=== PATIENT | female | born 1995 | race Caucasian/White ===

== ENCOUNTER 2017-01-14 19:10 | Emergency (ER) | payer OTHER ==
[2017-01-14 19:23] VITALS: BP 127/98; PULSE 122; TEMP 99.8; BMI 26.8
[2017-01-14] MEDS ORDERED: OXYCODONE/APAP 5/325MG COMBO TABLET PO ONE ×2 (20:24→21:50)
[2017-01-14] MEDS ORDERED: OXYCODONE/APAP 5/325MG COMBO TABLET ONE ×2 (20:25→21:17)
--- NOTE | 2017-01-14 20:35 | PDOC ---
[id number] INJURY Time Seen by Provider: 01/14/17 19:58 - History of Present Illness Initial Comments: 01/14/17 20:28 CHIEF COMPLAINT: leg pain HISTORY OF PRESENT ILLNESS: 21 yo F with no PMH presents to fast track with severe pain to left leg s/p fall. Patient states she was walking into the house carrying some groceries when she tripped and fell down and "felt my leg break." She states she felt a snap when she fell. She denies any loss of sensation to her feet or legs. No recent travel or sick contacts. PAST MEDICAL HISTORY: Denies past medical history FAMILY HISTORY: Denies SURGICAL HISTORY: Denies ALLERGIES: No known drug allergies REVIEW OF SYSTEMS General/Constitutional: Denies fever or chills. Denies weakness, weight change. HEENT: Denies change in vision. Denies ear pain or discharge. Denies sore throat. Cardiovascular: Denies chest pain or shortness of breath. Respiratory: Denies cough, wheezing, or hemoptysis. Gastrointestinal: Denies nausea, vomiting, diarrhea or constipation. Denies rectal bleeding. Genitourinary: Denies dysuria, frequency, or change in urination. Musculoskeletal: "I felt my leg break." Denies neck or back pain. Skin and breasts: Denies rash or easy bruising. PHYSICAL EXAM General Appearance: Well-appearing, appropriately dressed. No apparent distress , no intoxication. HEENT: EOMI, PERRLA. No photophobia, scleral icterus. Neck: No midline tenderness to cervical spine. Supple. Trachea midline. No tenderness, rigidity, carotid bruit, stridor, lymphadenopathy, or thyromegaly. Respiratory/Chest: Lungs CTAB. Cardiovascular: RRR. S1, S2. Vascular Pulses: Dorsalis-Pedis (R): 2+, Dorsalis-Pedis (L): 2+ Musculoskeletal/Extremities: Swelling and tenderness to left sarah. No midline tenderness to thoracic or lumbar spine. Pelvis Stable. No CVA tenderness. Integumentary: Appropriate color, dry, warm. No cyanosis, erythema, jaundice or rash Neurologic: nurse companion II-XII intact. Fully oriented, alert. Appropriate mood/affect. Motor strength 5/5. No appreciable EOM palsy, facial droop or sensory deficit. 01/14/17 20:39 01/14/17 21:27 Past History - Past Medical History Allergies/Adverse Reactions: Allergies Allergy/AdvReac Type Severity Reaction Status Date / Time No Known Allergies Allergy Verified 01/14/17 19:21 Home Medications: Ambulatory Orders Ibuprofen 800 mg PO TID #30 tablet 01/14/17 - Psycho/Social/Smoking Cessation Hx Suicidal Ideation: No Smoking History: Never smoked *Physical Exam - Vital Signs Last Vital Signs Temp Pulse Resp BP Pulse Ox 99.8 F H 122 H 20 127/98 99 01/14/17 19:21 01/14/17 19:21 01/14/17 19:21 01/14/17 19:21 01/14/17 19:21 Medical Decision Making - Medical Decision Making 01/14/17 21:27 21 yo F with no PMH presents to fast track with severe pain to left leg s/p fall. -L tib/fib x-ray -Percocet 2 tab -30 mg Toradol IM X-ray wet read - displaced comminuted fracture of tibial shaft. Discussed case with covering ortho ALEX Singh. Will apply posterior and sugar tong orthoglass splint. Patient agrees to follow up with Dr. Parker tomorrow at [facility] or at [place] [facility]. Advised patient to take meds as prescribed. Advised patient of signs and symptoms for return to ER. Patient verbalized understanding and agrees to plan. *DC/Admit/Observation/Transfer Diagnosis at time of Disposition: Tibial fracture Qualifiers: Encounter type: initial encounter Tibia location: shaft Fracture type: closed Fracture morphology: comminuted Fracture alignment: displaced Laterality: left Qualified Code(s): S82.252A - Displaced comminuted fracture of shaft of left tibia, initial encounter for closed fracture - Discharge Dispostion Disposition: HOME Condition at time of disposition: Stable Admit: No - Prescriptions Prescriptions: Ibuprofen 800 mg PO TID #30 tablet - Referrals Referrals: Mason Parker MD [Staff Physician] - - Patient Instructions Printed Discharge Instructions: DI for Shinbone Fracture Additional Instructions: Please take medications as prescribed. Do not drive or operate machinery while taking Percocet. If you experience any burning, loss of sensation, numbness, or tingling to your toes, feet or legs, or pain that is unrelieved by taking the medication, or you develop and new or worsening symptoms, please return to the ER. sophia Cortese los medicamentos segn las indicaciones. No conduzca ni opere maquinaria mientras est tomando Percocet. Si experimenta quemaduras, prdida de sensacin, entumecimiento u hormigueo en los dedos de los pies, pies o piernas, o dolor que no se maranda al raúl el medicamento, o si desarrolla s ntomas nuevos o que empeoran, regrese a la [place] de emergencias. Print Language: CROATIAN
[2017-01-14] MEDS ORDERED: KETOROLAC TROMETHAMINE 30 MG/1 ML VIAL IM ONE (20:37)
[2017-01-14] MEDS ORDERED: KETOROLAC TROMETHAMINE 30 MG/1 ML VIAL ONE (20:51)
== END 2017-01-14 21:52 | disposition home or self-care (01) ==
LOC: JERFT 19:10
PROC: 2W3RX1Z Immobilization of Left Lower Leg using Splint (ICD-10-PCS; principal; 2017-01-14)
DX: S82.252A Displaced comminuted fracture of shaft of left tibia, initial encounter for closed fracture (principal); W10.9XXA Fall (on) (from) unspecified stairs and steps, initial encounter; Y93.89 Activity, other specified; Y92.009 Unspecified place in unspecified non-institutional (private) residence as the place of occurrence of the external cause
CPT/HCPCS: 29515; 73590-TC-LT; 99281-25

== ENCOUNTER 2017-01-30 07:53 | Day surgery (SDC) | payer OTHER ==
[2017-01-28 10:18] VITALS: BMI 25.7
[2017-01-30] MEDS ORDERED: BUPIVACAINE HCL/PF 0.5% (5MG/ML) 10 ML VIAL ONE ×2 (11:29→12:03)
[2017-01-30] MEDS ORDERED: MIDAZOLAM HCL 2 MG/2 ML SINGLE DOSE VIAL ONE ×2 (11:42→13:18)
[2017-01-30] MEDS ORDERED: LIDOCAINE 1%-EPI 1:100,000 30 ML MDV IJ ONE (12:03)
[2017-01-30] MEDS ORDERED: ceFAZolin SODIUM 1 GM VIAL ONE (12:04)
[2017-01-30] MEDS ORDERED: ONDANSETRON 4 MG/2 ML VIAL IVPUSH PRN ×2 (14:08→14:23)
[2017-01-30] MEDS ORDERED: PROMETHAZINE HCL 25 MG/1 ML VIAL IVPUSH PRN ×2 (14:08→14:22)
[2017-01-30] MEDS ORDERED: LACTATED RINGERS SOLUTION 1,000 ML IV SCH ×2 (14:15→14:30)
[2017-01-30] MEDS ORDERED: oxyCODONE HCL 5 MG TABLET ONE (17:35)
[2017-01-30] MEDS ORDERED: KETOROLAC TROMETHAMINE 30 MG/1 ML VIAL ONE (18:09)
[2017-01-30] MEDS ORDERED: HYDROmorphone HCL CARPU-JECT 1 MG/1 ML DISP.SYRIN ONE (18:10)
[2017-01-30] MEDS: HYDROmorphone HCL CARPU-JECT 1 MG/1 ML DISP.SYRIN IVPB SCH ×2 (18:15→18:35)
[2017-01-30] MEDS ORDERED: KETOROLAC TROMETHAMINE 30 MG/1 ML VIAL IVPUSH ONE (18:30)
[2017-01-30] MEDS ORDERED: ACETAMINOPHEN 325 MG TABLET (FP) PO PRN (18:51)
[2017-01-30] MEDS ORDERED: OXYCODONE/APAP 5/325MG COMBO TABLET PO PRN (18:51)
[2017-01-30] MEDS: OXYCODONE/APAP 5/325MG COMBO TABLET PO PRN (20:35)
[2017-01-30] MEDS: DOCUSATE SODIUM 100 MG CAPSULE (FP) PO SCH (21:27)
[2017-01-30] MEDS: CALCIUM 500MG/VIT-D 200 UNITS COMBO TABLET (FP) PO SCH (21:27)
[2017-01-31] MEDS: OXYCODONE/APAP 5/325MG COMBO TABLET PO PRN ×2 (02:37→08:38)
[2017-01-31 05:41] VITALS: BP 129/72; PULSE 105; TEMP 97.9
[2017-01-31] MEDS: DOCUSATE SODIUM 100 MG CAPSULE (FP) PO SCH (06:30)
[2017-01-31] MEDS ORDERED: IBUPROFEN 400 MG TABLET (FP) PO PRN (09:16)
--- NOTE | 2017-01-31 09:16 | PN ---
Progress Note (short form) - Note Progress Note: ANESTHESIOLOGY POST-OP CHECK 21F s/p left tibia ORIF with intramedullary pat under spinal anesthesia, POD # 1. Resting in bed. C/O pain 8/10. Denies N/V, numbness, weakness, backache, headache. Vital Signs Temperature 97.9 F 01/31/17 05:37 Pulse Rate 105 H 01/31/17 05:37 Respiratory Rate 18 01/31/17 08:04 Blood Pressure 129/72 01/31/17 05:37 O2 Sat by Pulse Oximetry (%) 98 01/31/17 08:04 Active Medications Acetaminophen (Tylenol -) 650 mg PO Q6H PRN PRN Reason: PAIN Calcium Carbonate/Cholecalciferol (Os-Oscar 500+D -) 1 tab PO BID [facility] Last Admin: 01/30/17 21:27 Dose: 1 tab Docusate Sodium (Colace -) 100 mg PO TID [facility] Last Admin: 01/31/17 06:30 Dose: 100 mg Enoxaparin Sodium (Lovenox -) 40 mg SQ DAILY [facility] Lactated Ringer's (Lactated Ringers Solution) 1,000 mls @ 125 mls/hr IV ASDIR [facility] Oxycodone/Acetaminophen (Percocet 5/325 -) 1 combo PO Q6H PRN PRN Reason: PAIN LEVEL 1-5 Oxycodone/Acetaminophen (Percocet 5/325 -) 2 combo PO Q6H PRN PRN Reason: PAIN LEVEL 6-10 Last Admin: 01/31/17 08:38 Dose: 2 combo Gen: Awake, alert, no apparent distress Ext: No motor or sensory deficits of B/L lower extremities No apparent anesthesia complications. Continue Oxycodone 10 mg, add ibuprofen as supplemental analgesic.Continue management as per primary team.
--- NOTE | 2017-01-31 09:38 | PN ---
Progress Note (short form) - Note Progress Note: Ortho progress note S: Due to the [employer] research technician phone not working, translation was provided by a staff member. Patient reports her pain improving since yesterday. Denies CP, SOB, calf pain, abd pain, N/V/D, fever, chills. States she would like to go home. O: NAD. VSS. Afebrile. L leg exam: Mild swelling. Dressing C/D/I. Compartments soft. Calves soft, NT. NVID. A/P: 21 y/o female POD #1 s/p L tibial IM nail placement -patient's pain has improved -continue NWB with crutches on LLE -d/c home -pain medication sent to pharmacy -follow up next week with Dr. Parker out-pt -plan discussed with Dr. Parker who was in agreement
[2017-01-31] MEDS ORDERED: ENOXAPARIN NA (PORCINE) 40 MG/0.4 ML DISP.SYRIN SQ SCH (10:00)
[2017-01-31] MEDS: CALCIUM 500MG/VIT-D 200 UNITS COMBO TABLET (FP) PO SCH (10:15)
--- NOTE | 2017-02-01 19:29 | OP ---
DATE OF OPERATION: 01/30/2017 POSTOPERATIVE DIAGNOSIS: Left tibia fracture. POSTOPERATIVE DIAGNOSIS: Left tibia fracture. PROCEDURE: Left tibia intramedullary nail. SURGEON: Mason Parker MD BROOMCORN THRESHER: Shivani Erwin whose skillful assistance was necessary for the safe and timely performance of this procedure. ANESTHESIA: Spinal. POSTOPERATIVE CONDITION: Stable. COMPLICATIONS: None. IMPLANTS: Diana T2 tibial nail, 9 x 330 associated 5-0 locking bolts 2 proximal and 2 distal. INDICATIONS: This is a pleasant 21-year-old who had suffered a left tibia fracture. She was initially seen in the office and casted; however, after the cast, she had very slight but was uncomfortable in the cast and wanted to consider operative management. Operative treatment was discussed including its risks including bleeding, infection, neurovascular injury, need for further surgery, postoperative pain and stiffness, nonunion, malunion, hardware failure . We discussed that surgery was not absolutely necessary for this fracture. The alignment was very close to normal in the cast with only a small amount of translation, which might have resulted in a small rotational deformity as well. We discussed the benefits of surgery would be near anatomic alignment along with earlier ability to mobilize the knee and ankle. We reviewed medical risks of the procedure as well including heart attack, stroke, DVT, PE, and . We discussed this all utilizing the [employer] communications controller phone. I addressed all of the patient's questions. She voiced understanding and elected to proceed. DESCRIPTION OF PROCEDURE: The patient was brought to the operating room where spinal anesthesia was administered. The left lower extremity was then prepped and draped in the usual sterile fashion. A preoperative dose of antibiotics was given, and the usual time-out procedure was performed. After giving anesthesia, the anesthesiology team noted that there was some persistent tachycardia. While the patient was hemodynamically stable, they suggested to rule out DVT, and this was ordered after the procedure. At this point, the incision was planned out over the patellar tendon. This was carried down through skin to subcutaneous tissue. Blunt spreading was used to expose the paratenon, which was split in line with its fibers. Dissection was then carried down posterior to the patellar tendon in the area of the tibial spines. A guidewire was now inserted just medial to the lateral tibial spine and just past the tibial roll offs in a posterior direction. Guidewire placement was confirmed fluoroscopically in 2 planes. The guidewire was now over reamed creating a corticotomy and entry into the tibial canal. An awl was now placed into his hole and used to direct the long guidewire down the shaft of the tibia. One guidewire was placed across the fracture site down to the center of the tibial plafond. Fracture site was being held manually reduced into near anatomic location. There was more comminution noted under fluoroscopy than there was initially appreciated on the plain film x-rays. The reaming was started progressing up to a size 10.5. Excellent chatter was achieved. Therefore, a size 9 nail was chosen. The nail was measured, and 330 mL length was appropriate. The nail was now inserted over the long guidewire, again, maintaining the reduction manually as the nail was inserted. Nail placement and fracture reduction were confirmed fluoroscopically. The nail was now locked proximally utilizing both the anterolateral oblique as well as the medial to lateral screw. These were chosen based on soft tissue coverage to minimize postoperative irritation. Both screws were inserted by first inserting the trocar to corbin the skin making a small skin incision followed by blunt spreading and insertion of the trocar down to the level of the bone. Both screws were then drilled and then inserted in standard fashion. The screw placement was confirmed fluoroscopically and was satisfactory. Attention was now turned distally. First, the jig was removed from the proximal portion of the nail. Fluoroscopy was then used to create a perfect [place] technique distally to identify the distal locking holes. Incisions were made, and blunt spreading was carried down over each of the distal locking holes in the medial collateral direction. Both holes were drilled and then screws of appropriate length were inserted. The lower screw was right at the level of the syndesmosis and, therefore, the screw was maintained solidly within the tibia to avoid any penetration within that joint. Therefore, screw placement was confirmed fluoroscopically and was satisfactory. At this point, the entire construct including fracture reduction and hardware placement was examined both visually and fluoroscopically. Both were satisfactorily. The wounds were copiously irrigated at this point. The deep tissue was approximated using 4-0 Vicryl. The subcutaneous tissue was approximated using 2-0 Vicryl. The skin was closed using 3-0 nylon. Sterile dressings were placed. The patient was transferred to the recovery room in stable condition. Postoperative duplex ruled out any evidence of DVT. The patient was admitted for overnight observation. Alicia [id number]
== END 2017-01-31 12:18 | disposition home or self-care (01) ==
LOC: FASU 07:53 → FM/S 19:34 → FASU 01-31 12:18
PROVIDERS: ATTEND Orthopaedic Surgery Sports Medicine
PROC: 0QHH06Z Insertion of Intramedullary Internal Fixation Device into Left Tibia, Open Approach (ICD-10-PCS; principal; 2017-01-30 12:20)
DX: S82.252A Displaced comminuted fracture of shaft of left tibia, initial encounter for closed fracture (principal); X58.XXXA Exposure to other specified factors, initial encounter; Y93.9 Activity, unspecified; Y92.9 Unspecified place or not applicable
CPT/HCPCS: 73590-TC-LT; 76001-TC; 84703; 93970-TC; 94760; 97116-GP; 97161-GP

== ENCOUNTER → 2022-12-25 | Day surgery (SDC) | payer OTHER | END | disposition home or self-care (01) | LOC: JRADUS-SUR 11:43 | PROVIDERS: ATTEND Student in an Organized Health Care Education/Training Program | PROC: 0H9T3ZX Drainage of Right Breast, Percutaneous Approach, Diagnostic (ICD-10-PCS; principal; 2022-12-25) | DX: D24.1 Benign neoplasm of right breast (principal) | CPT/HCPCS: 19083; 87899; 88305-TC; A4648 ==

== ENCOUNTER 2024-07-02 08:40 | Emergency (ER) | payer OTHER ==
[2024-07-02 08:54] VITALS: BP 138/83; PULSE 99; RESP 20; TEMP 98.3; BMI 40.8
[2024-07-02 09:52] LABS: EPI CELLS 22 /uL (0-25.1); HYALINE CASTS 6 /uL (0-3.1); URINE APPEARANCE CLEAR; URINE BACTERIA 1254 /uL (0-1359); URINE BILIRUBIN NEGATIVE (NEGATIVE); URINE COLOR YELLOW; URINE GLUCOSE (UA) NEGATIVE (NEGATIVE); URINE KETONE NEGATIVE (NEGATIVE); URINE LEUK ESTERASE 2+ (NEGATIVE); URINE NITRITE NEGATIVE (NEGATIVE); URINE PROTEIN NEGATIVE (NEGATIVE); URINE RBC 19 /uL (0-23.9); URINE UROBILINOGEN 0.2 mg/dL (0.2-1.0); URINE WBC 123 /uL (0-25.8)
[2024-07-02] MEDS ORDERED: FAMOTIDINE 20 MG/50 ML IVPB 20 MG/50 ML MG IVPB ONE (09:52)
[2024-07-02] MEDS ORDERED: ACETAMINOPHEN INJECTION 100 ML ONE (09:52)
[2024-07-02] MEDS ORDERED: MAG HYDROX/AL HYDROX/SIMETH 30 ML UNIT-DOSE CUP ONE (09:52)
[2024-07-02] MEDS: ACETAMINOPHEN 1000 MG/100 ML BAG IVPB ONE (10:13)
[2024-07-02] MEDS: MAG HYDROX/AL HYDROX/SIMETH 30 ML UNIT-DOSE CUP PO ONE (10:14)
[2024-07-02] MEDS: FAMOTIDINE 20 MG/50 ML IVPB 20 MG/50 ML MG IVPB ONE (10:14)
[2024-07-02 10:45] LABS: BASO % 0.3 % (0-2.0); EOS % 0.9 % (0-4.5); HEMATOCRIT 39.7 % (32.4-45.2); HEMOGLOBIN 13.1 GM/dL (10.7-15.3); LYMPH % 28.8 % (8-40); MCH 26.8 pg (25.7-33.7); MCHC 32.9 g/dl (32.0-36.0); MEAN CELL VOLUME 81.6 fl (80-96); MEAN PLT VOLUME 7.1 fl (7.5-11.1); MONO % 4.7 % (3.8-10.2); NEUT % 65.3 % (42.8-82.8); PLATELET COUNT 501 10^3/uL (134-434); RBC 4.86 M/mm3 (3.60-5.2); RDW 13.9 % (11.6-15.6); WHITE BLOOD COUNT 9.2 K/mm3 (4.0-10.0)
[2024-07-02 11:06] LABS: BLOOD UREA NITROGEN 9.9 mg/dL (7-18); CALCIUM 10.1 mg/dL (8.5-10.1); POTASSIUM 4.5 mmol/L (3.5-5.1)
[2024-07-02 11:10] LABS: CREATININE 0.7 mg/dL (0.55-1.3)
[2024-07-02 11:11] LABS: BILIRUBIN,TOTAL 0.3 mg/dL (0.2-1); TOT PROT 8.4 g/dl (6.4-8.2)
[2024-07-02 13:06] LABS: HIV INTERPRETATION NEGATIVE (NEGATIVE)
== END 2024-07-02 12:35 | disposition home or self-care (01) ==
LOC: JER 08:40
PROC: 3E033GC Introduction of Other Therapeutic Substance into Peripheral Vein, Percutaneous Approach (ICD-10-PCS; principal; 2024-07-02)
PROC: 3E033NZ Introduction of Analgesics, Hypnotics, Sedatives into Peripheral Vein, Percutaneous Approach (ICD-10-PCS; 2024-07-02)
DX: R10.84 Generalized abdominal pain (principal); R11.2 Nausea with vomiting, unspecified
CPT/HCPCS: 36415; 80053; 81003; 83690; 84703; 85025; 86803; 87086; 87389; 99284-25; J0131